=== PATIENT | female | born 1985 | race African-American/Black ===

== ENCOUNTER 2025-04-12 10:05 | Emergency (ER) | payer OTHER, MEDICAID ==
[2025-04-12] MEDS ORDERED: Ketorolac Tromethamine 30 MG (1 mL) VIAL ONE (10:59)
[2025-04-12 12:04] LABS: #Basophils 0.04 10x3/uL (0.0-0.2); #Eosinophils 0.05 10x3/uL (0.0-0.5); #Monocytes 0.50 10x3/uL (0.0-1.1); #Neutrophils 3.06 10x3/uL (1.5-8.4); %Basophils 0.4 % (0.0-2.0); %Eosinophils 0.5 % (0.0-6.0); %Lymphocytes 59.8 % (18.0-47.0); %Monocytes 5.5 % (0.0-10.0); %Neutrophils 33.6 % (40.0-75.0); Hematocrit 45.9 % (34.9-44.5); Hemoglobin 15.9 g/dL (12.0-15.5); Mean Corpuscular Hemoglobin 33.0 pg (27.0-33.0); Mean Corpuscular Volume 95.2 fL (81.6-98.3); Platelet Count 211 10x3/uL (150-450); Red Blood Cell (RBC) Count 4.82 10x6/uL (3.90-5.03); White Blood Cell (WBC) Count 9.14 10x3/uL (3.5-10.5)
[2025-04-12 12:24] LABS: ALT (SGPT) 16 U/L (Less than 34); AST (SGOT) 51 U/L (11-34); Albumin 2.3 g/dL (3.1-4.5); Alkaline Phosphatase 139 U/L (40-110); Anion Gap 8 mmol/L (10-20); BUN (Urea Nitrogen) 12 mg/dL (7.0-18.7); Bilirubin, Total 0.3 mg/dL (0.3-1.2); CK (CPK) 11 U/L (29-168); Calc. Creatinine Clearance 0 mL/min (70-130); Calcium 7.9 mg/dL (7.8-10.44); Carbon Dioxide 21 mmol/L (22-29); Chloride 108 mmol/L (98-107); Globulin 6.7 g/dL (2.4-3.5); Glucose 80 mg/dL (70-105); Magnesium 1.6 mg/dL (1.6-2.6); Potassium 3.8 mmol/L (3.5-5.1); Sodium 133 mmol/L (136-145)
== END 2025-04-12 12:27 ==
LOC: CSHERS 10:05
DX: M79.652 Pain in left thigh (principal); M79.651 Pain in right thigh; F17.210 Nicotine dependence, cigarettes, uncomplicated; B20 Human immunodeficiency virus [HIV] disease
CPT/HCPCS: 36415; 80053; 82550; 83735; 85025; 96374; J1885